=== PATIENT | female | born 1980 | race Two or more races ===

== ENCOUNTER 2018-11-13 01:10 | Inpatient (IN) | payer MEDICAID ==
[2018-11-13] MEDS ORDERED: Misoprostol 200 MCG Tab PO PRN (01:37)
[2018-11-13] MEDS ORDERED: Sodium Chloride 0.9% 10 ML SDV IV PRN (01:37)
[2018-11-13] MEDS ORDERED: Methylergonovine 0.2 MG/1 ML Amp IM PRN (01:37)
[2018-11-13] MEDS ORDERED: Butorphanol 1 MG/ML SDV IVPUSH PRN (01:37)
[2018-11-13] MEDS ORDERED: Nalbuphine 10 MG/1 ML Vial IVPUSH PRN (01:37)
[2018-11-13] MEDS ORDERED: Water For Irrigation,Sterile 1,000 ML Container IRR PRN (01:37)
[2018-11-13] MEDS ORDERED: Sodium Chloride 0.9% 10 ML Syringe FLUSH PRN (01:37)
[2018-11-13] MEDS ORDERED: Tranexamic Acid 1,000 MG in Sodium Chloride 0.9% 100 ML IV PRN (01:37)
[2018-11-13] MEDS ORDERED: Lidocaine 1% 50 ML MDV INJECT PRN (01:37)
[2018-11-13] MEDS ORDERED: Carboprost Tromethamine 250 MCG/1 ML Amp IM PRN (01:37)
[2018-11-13] MEDS ORDERED: Sodium Chloride 0.9% 2.5 ML Syringe FLUSH PRN (01:37)
[2018-11-13] MEDS ORDERED: Misoprostol 25 MCG (1/4 of 100 MCG) Tab VAG PRN ×2 (01:39)
[2018-11-13] MEDS ORDERED: Terbutaline 1 MG/ML SDV SUBCUT PRN (01:39)
[2018-11-13] MEDS ORDERED: Ampicillin 2 GM in Sodium Chloride 0.9% 100 ML IV ONE (01:45)
[2018-11-13] MEDS ORDERED: Oxytocin/0.9 % Sodium Chloride 30 UNIT/500 ML BAG IV SCH ×2 (01:45)
[2018-11-13] MEDS ORDERED: Lactated Ringers 1,000 ML IV SCH (01:45)
[2018-11-13] MEDS ORDERED: Calcium Carbonate 500 MG Tab.Chew PO PRN (02:15)
[2018-11-13] MEDS: Misoprostol 25 MCG (1/4 of 100 MCG) Tab PO SCH ×3 (02:28→20:50)
[2018-11-13] MEDS ORDERED: Ampicillin 1 GM in Sodium Chloride 0.9% 50 ML IV SCH (06:00)
[2018-11-13] MEDS: Ampicillin 1 GM in Sodium Chloride 0.9% 50 ML IV SCH (06:04)
--- NOTE | 2018-11-13 07:08 | PCM.LDHP ---
L&D History of Present Illness - General Date of Service: 11/13/18 Admit Problem/Dx: Patient Status Order with Admit Dx/Problem 11/13/18 01:37 Patient Status [ADT] Routine Admission Diagnosis/Problem Admission Diagnosis/Problem - planned 11/13/18 07:04 38yo EDC 11/24/2018 38 3/7wks IOL AMA, O+, RI, GBS pos. 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: Musculoskeletal History: Reports: RA Social & Family History - Family History Family Medical History: Noncontributory - Tobacco Use Smoking Status *Q: Former Smoker Years of Tobacco use: 15 Used Tobacco, but Quit: No Second Hand Smoke Exposure: No - Caffeine Use Caffeine Use: Reports: Coffee - Recreational Drug Use Recreational Drug Use: No H&P Review of Systems - Review of Systems: Review Of Systems: See Below General: Reports: No Symptoms HEENT: Reports: No Symptoms Pulmonary: Reports: No Symptoms Cardiovascular: Reports: No Symptoms Gastrointestinal: Reports: No Symptoms Genitourinary: Reports: No Symptoms Musculoskeletal: Reports: No Symptoms Skin: Reports: No Symptoms Psychiatric: Reports: No Symptoms Neurological: Reports: No Symptoms Hematologic/Lymphatic: Reports: No Symptoms Immunologic: Reports: No Symptoms L&D Exam - Exam Exam: See Below - Vital Signs Weight: 89.358 kg - OB Specific Contraction Intensity: Moderate Movement: Active Heart Tones: Present Heart Rate (FHR) Variability: Moderate (6-25 bmp) Presentation: Vertex - Reyes Score Reyes Score Cervix Position: Midposition Reyes Score Consistency: Soft Reyes Score Effacement: 51-70% Reyes Score Dilation: 1-2 cm Reyes Score Infant's Station: -2 Reyes Score Total: 7 - Exam General: Alert, Oriented, Cooperative HEENT: Hearing Intact Lungs: Clear to Auscultation, Normal Respiratory Effort. No: Decreased Breath Sounds Cardiovascular: Regular Rate, Regular Rhythm, Normal S1, Normal S2. No: Irregular Rhythm GI/Abdominal Exam: Soft, Non-Tender Rectal Exam: Deferred Genitourinary: Normal external exam, Cervical dilitation. No: Cervical fluid, Vaginal bleeding Back Exam: Normal Inspection, Full Range of Motion Extremities: Normal Inspection, Normal Range of Motion, Non-Tender Skin: Warm, Dry, Intact Neurological: Cranial Nerves Intact, Reflexes Equal Bilateral, Strength Equal Bilateral, Normal Speech, Normal Tone, Sensation Intact Psychiatric: Alert, Normal Affect, Normal Mood - Patient Data Lab Results Last 24 hrs: Laboratory Results - last 24 hr 11/13/18 11/13/18 Range/Units 02:07 02:07 WBC 9.06 (4.0-11.0) K/uL RBC 3.60 L (4.30-5.90) M/uL Hgb 11.2 L (12.0-16.0) g/dL Hct 32.1 L (36.0-46.0) % MCV 89.2 (80.0-98.0) fL MCH 31.1 (27.0-32.0) pg MCHC 34.9 (31.0-37.0) g/dL RDW Std Deviation 43.8 (28.0-62.0) fl RDW Coeff of Sherlyn 13 (11.0-15.0) % Plt Count 344 (150-400) K/uL MPV 9.50 (7.40-12.00) fL Nucleated RBC % 0.0 /100WBC Nucleated RBCs # 0 K/uL Blood Type O POSITIVE Antibody Screen NEGATIVE Result Diagrams: 11/13/18 02:07 - Problem List (1) Supervision of normal IUP (intrauterine ) in multigravida SNOMED Code(s): 637726115, 676433539, 267613385 ICD Code: Z34.80 - ENCOUNTER FOR SUPRVSN OF NORMAL , UNSP TRIMESTER Status: Acute Priority: High Current Visit: Yes Qualifiers: Trimester: third trimester Qualified Code(s): Z34.83 - Encounter for supervision of other normal , third trimester (2) AMA (advanced maternal age) multigravida 35+ SNOMED Code(s): 111740158 ICD Code: O09.529 - SUPERVISION OF ELDERLY MULTIGRAVIDA, UNSPECIFIED TRIMESTER Status: Acute Priority: High Current Visit: Yes Qualifiers: Trimester: third trimester Qualified Code(s): O09.523 - Supervision of elderly multigravida, third trimester Problem List Initiated/Reviewed/Updated: Yes Orders Last 24hrs: Active Orders 24 hr Category Date Time Status Patient Status [ADT] Routine ADT 11/13/18 01:37 Active Communication Order [RC] ASDIRECTED Care 11/13/18 01:39 Active Communication Order [RC] ASDIRECTED Care 11/13/18 01:39 Active Communication Order [RC] ASDIRECTED Care 11/13/18 01:39 Active Heart Tones [RC] CONTINUOUS Care 11/13/18 01:37 Active Non Stress Test [RC] PER UNIT ROUTINE Care 11/13/18 01:37 Active May Shower [RC] ASDIRECTED Care 11/13/18 01:37 Active Notify Provider [RC] PRN Care 11/13/18 01:37 Active Notify Provider [RC] PRN Care 11/13/18 01:39 Active Notify Provider [RC] PRN Care 11/13/18 01:39 Active Notify Provider [RC] STAT Care 11/13/18 01:39 Active Oxygen Therapy [RC] ASDIRECTED Care 11/13/18 01:39 Active Up ad Alma Delia [RC] ASDIRECTED Care 11/13/18 01:37 Active Vaginal Exam [RC] PRN Care 11/13/18 01:37 Active Vital Signs [RC] PER UNIT ROUTINE Care 11/13/18 01:37 Active Regular Diet [DIET] Diet 11/13/18 Breakfast Active Ampicillin 1 gm Med 11/13/18 06:30 Active Sodium Chloride 0.9% [Normal Saline] 50 ml IV Q4H Butorphanol [Stadol] Med 11/13/18 01:37 Active 1 mg IVPUSH Q1H PRN Calcium Carbonate [Tums] Med 11/13/18 02:15 Active 1,000 mg PO Q2HR PRN Carboprost Tromethamine [Hemabate DS] Med 11/13/18 01:37 Active 250 mcg IM ASDIRECTED PRN Lactated Ringers [Ringers, Lactated] 1,000 ml Med 11/13/18 01:45 Active IV ASDIRECTED Lidocaine 1% [Xylocaine 1%] Med 11/13/18 01:37 Active 50 ml INJECT ONETIME PRN Methylergonovine [Methergine] Med 11/13/18 01:37 Active 0.2 mg IM ASDIRECTED PRN Nalbuphine [Nubain] Med 11/13/18 01:37 Active 10 mg IVPUSH Q1H PRN Oxytocin/0.9 % Sodium Chloride [Oxytocin 30 Unit/500 ML Med 11/13/18 01:45 Active -NS] 30 unit in 500 ml IV TITRATE Oxytocin/0.9 % Sodium Chloride [Oxytocin 30 Unit/500 ML Med 11/13/18 01:45 Active -NS] 30 unit in 500 ml IV TITRATE Sodium Chloride 0.9% [Normal Saline] Med 11/13/18 01:37 Active 10 ml IV ASDIRECTED PRN Sodium Chloride 0.9% [Saline Flush] Med 11/13/18 01:37 Active 10 ml FLUSH ASDIRECTED PRN Sodium Chloride 0.9% [Saline Flush] Med 11/13/18 01:37 Active 2.5 ml FLUSH ASDIRECTED PRN Terbutaline [Brethine] Med 11/13/18 01:39 Active 0.25 mg SUBCUT ASDIRECTED PRN Tranexamic Acid [Cyklokapron] 1,000 mg Med 11/13/18 01:37 Active Sodium Chloride 0.9% [Normal Saline] 100 ml IV ONETIME Water For Irrigation,Sterile [Sterile Water for Med 11/13/18 01:37 Active Irrigation] 1,000 ml IRR ASDIRECTED PRN miSOPROStol [Cytotec] Med 11/13/18 01:37 Active 200 mcg PO ONETIME PRN miSOPROStol [Cytotec] Med 11/13/18 02:00 Active 25 mcg PO Q4H miSOPROStol [Cytotec] Med 11/13/18 01:39 Active 25 mcg VAG ONETIME PRN miSOPROStol [Cytotec] Med 11/13/18 01:39 Active 25 mcg VAG Q4H PRN Scalp Electrode [WOMSER] Per Unit Routine Oth 11/13/18 01:37 Ordered Medication Administration Instruction [OM.PC] Q3H Oth 11/13/18 01:45 Ordered Peripheral IV Insertion Adult [OM.PC] Routine Oth 11/13/18 01:37 Ordered Resuscitation Status Routine Resus Stat 11/13/18 01:37 Ordered Medication Orders Butorphanol Tartrate (Stadol) 1 mg IVPUSH Q1H PRN PRN Reason: Pain Calcium Carbonate/Glycine (Tums) 1,000 mg PO Q2HR PRN PRN Reason: Indigestion Carboprost Tromethamine (Hemabate Ds) 250 mcg IM ASDIRECTED PRN PRN Reason: Post Hemorrhage Lactated Ringer's (Ringers, Lactated) 1,000 mls @ 150 mls/hr IV ASDIRECTED [facility] Last Admin: 11/13/18 02:28 Dose: 150 mls/hr Oxytocin/Sodium Chloride (Oxytocin 30 Unit/500 Ml-Ns) 30 unit in 500 mls @ 500 mls/hr IV TITRATE XU Tranexamic Acid 1,000 mg/ (Sodium Chloride) 110 mls @ 660 mls/hr IV ONETIME PRN PRN Reason: Bleeding Oxytocin/Sodium Chloride (Oxytocin 30 Unit/500 Ml-Ns) 30 unit in 500 mls @ 2 mls/hr IV TITRATE [facility]; Protocol Ampicillin Sodium 1 gm/ Sodium (Chloride) 50 mls @ 100 mls/hr IV Q4H [facility] Last Admin: 11/13/18 06:04 Dose: 100 mls/hr Lidocaine HCl (Xylocaine 1%) 50 ml INJECT ONETIME PRN PRN Reason: Laceration repair Methylergonovine Maleate (Methergine) 0.2 mg IM ASDIRECTED PRN PRN Reason: Post Hemorrhage Misoprostol (Cytotec) 200 mcg PO ONETIME PRN PRN Reason: Post Hemorrhage Misoprostol (Cytotec) 25 mcg VAG ONETIME PRN PRN Reason: Cervical Ripening Last Admin: 11/13/18 02:29 Dose: 25 mcg Misoprostol (Cytotec) 25 mcg VAG Q4H PRN PRN Reason: Cervical Ripening Misoprostol (Cytotec) 25 mcg PO Q4H [facility] Last Admin: 11/13/18 06:05 Dose: 25 mcg Admin: 11/13/18 02:28 Dose: 25 mcg Nalbuphine HCl (Nubain) 10 mg IVPUSH Q1H PRN PRN Reason: Pain (severe 7-10) Sodium Chloride (Saline Flush) 10 ml FLUSH ASDIRECTED PRN PRN Reason: Keep Vein Open Sodium Chloride (Saline Flush) 2.5 ml FLUSH ASDIRECTED PRN PRN Reason: Keep Vein Open Sodium Chloride (Normal Saline) 10 ml IV ASDIRECTED PRN PRN Reason: IV Use Sterile Water (Sterile Water For Irrigation) 1,000 ml IRR ASDIRECTED PRN PRN Reason: delivery Terbutaline Sulfate (Brethine) 0.25 mg SUBCUT ASDIRECTED PRN PRN Reason: Tacysystole Assessment/Plan Comment:: IOL A: 38yo EDC 11/24/2018 38 3/7wks IOL AMA, O+, RI, GBS pos. P: Admit, cytotec to pitocin, desires unmedicated labor, anticipate . Dr Owens updated.
[2018-11-13] MEDS ORDERED: Benzocaine/Menthol 20%-0.5% Spray 78 GM Cannister TOP PRN (11:00)
[2018-11-13] MEDS ORDERED: Ibuprofen 400 MG Tab PO PRN (11:00)
[2018-11-13] MEDS ORDERED: Bisacodyl 10 MG Supp RECTAL PRN (11:00)
[2018-11-13] MEDS ORDERED: Docusate Sodium 100 MG Cap PO PRN (11:00)
[2018-11-13] MEDS ORDERED: Acetaminophen 500 MG Tab PO PRN (11:00)
[2018-11-13] MEDS ORDERED: Witch Hazel Medicated Pads 40/Jar TOP PRN (11:00)
[2018-11-13] MEDS ORDERED: oxyCODONE 5 MG Tab PO PRN (11:00)
[2018-11-13] MEDS ORDERED: Ibuprofen 800 MG Tab PO PRN (11:00)
[2018-11-13] MEDS ORDERED: Lanolin 100% Cream 7 GM Tube TOP PRN (11:00)
--- NOTE | 2018-11-13 11:13 | PCM.DEL ---
L & D Note - General Info Date of Service: 11/13/18 Mother's Due Date: 11/24/18 - Delivery Note Cervical Ripening Method: Misoprostil Delivery Outcome: Livebirth Delivery Method: Spontaneous Vaginal Delivery-Single Presentation: Vertex Nuchal Cord: None Anesthesia Type: None Laceration: None Placenta: Intact, Spontaneous Cord: 3 Vessels Estimated Blood Loss: 150 Resuscitation Needed: No [place]: Stimulated Provider: Neno Owens Score 5 min: 9 Delivery Comments (Free Text/Narrative):: viable male, precipitous delivery in bed, came into the room within a few minutes of being called by L&D nurses; cord doubly clamped and cut by RN, infant to warmer for assessment, 5 minute : 9, weight pending, cord blood collected, placenta delivered grossly intact, 3VC, perineum intact, EBL 150 mL, mom and infant left in stable condition with RN at bedside Induction Criteria - Reyes Score Reyes Score Dilation: 1-2 cm Reyes Score Effacement: 60-70% Reyes Score 's Station: -2 Reyes Score Consistency: Soft Reyes Score Cervix Position: Posterior Reyes Score Total: 6 - Induction Gestational Age >/= 39 wks: Yes Medical Indication: AMA Estimated Pelvis: Reports: Adequate Reassuring Monitoring Strip: Yes Absence of Tachy Systole: Yes - General Info Date of Service: 11/13/18 Admission Dx/Problem (Free Text): Patient Status Order with Admit Dx/Problem 11/13/18 01:37 Patient Status [ADT] Routine Admission Diagnosis/Problem Admission Diagnosis/Problem - planned 11/13/18 07:04 38yo EDC 11/24/2018 38 3/7wks IOL AMA, O+, RI, GBS pos. Functional Status: Reports: Pain Controlled - Review of Systems General: Reports: No Symptoms HEENT: Reports: No Symptoms Pulmonary: Reports: No Symptoms Cardiovascular: Reports: No Symptoms Gastrointestinal: Reports: No Symptoms Genitourinary: Reports: No Symptoms Musculoskeletal: Reports: No Symptoms Skin: Reports: No Symptoms Neurological: Reports: No Symptoms Psychiatric: Reports: No Symptoms - Patient Data Weight - Most Recent: 89.358 kg Lab Results Last 24 Hours: Laboratory Results - last 24 hr 11/13/18 11/13/18 Range/Units 02:07 02:07 WBC 9.06 (4.0-11.0) K/uL RBC 3.60 L (4.30-5.90) M/uL Hgb 11.2 L (12.0-16.0) g/dL Hct 32.1 L (36.0-46.0) % MCV 89.2 (80.0-98.0) fL MCH 31.1 (27.0-32.0) pg MCHC 34.9 (31.0-37.0) g/dL RDW Std Deviation 43.8 (28.0-62.0) fl RDW Coeff of Sherlyn 13 (11.0-15.0) % Plt Count 344 (150-400) K/uL MPV 9.50 (7.40-12.00) fL Nucleated RBC % 0.0 /100WBC Nucleated RBCs # 0 K/uL Blood Type O POSITIVE Antibody Screen NEGATIVE Med Orders - Current: Current Medications Acetaminophen (Tylenol Extra Strength) 500 mg PO Q4H PRN PRN Reason: Pain Acetaminophen (Tylenol Extra Strength) 1,000 mg PO Q4H PRN PRN Reason: Pain Benzocaine/Menthol (Dermoplast Pain Relief 20%-0.5% [place]) 78 gm TOP ASDIRECTED PRN PRN Reason: Perineal Comfort Measure Bisacodyl (Dulcolax) 10 mg RECTAL ONETIME PRN PRN Reason: Constipation Butorphanol Tartrate (Stadol) 1 mg IVPUSH Q1H PRN PRN Reason: Pain Calcium Carbonate/Glycine (Tums) 1,000 mg PO Q2HR PRN PRN Reason: Indigestion Carboprost Tromethamine (Hemabate Ds) 250 mcg IM ASDIRECTED PRN PRN Reason: Post Hemorrhage Docusate Sodium (Colace) 100 mg PO BID PRN PRN Reason: Constipation Emollient Ointment (Lansinoh Hpa) 0 gm TOP ASDIRECTED PRN PRN Reason: Sore Nipples Lactated Ringer's (Ringers, Lactated) 1,000 mls @ 150 mls/hr IV ASDIRECTED XU Last Admin: 11/13/18 02:28 Dose: 150 mls/hr Oxytocin/Sodium Chloride (Oxytocin 30 Unit/500 Ml-Ns) 30 unit in 500 mls @ 500 mls/hr IV TITRATE [facility] Tranexamic Acid 1,000 mg/ (Sodium Chloride) 110 mls @ 660 mls/hr IV ONETIME PRN PRN Reason: Bleeding Oxytocin/Sodium Chloride (Oxytocin 30 Unit/500 Ml-Ns) 30 unit in 500 mls @ 2 mls/hr IV TITRATE [facility]; Protocol Ampicillin Sodium 1 gm/ Sodium (Chloride) 50 mls @ 100 mls/hr IV Q4H [facility] Last Admin: 11/13/18 06:04 Dose: 100 mls/hr Ibuprofen (Motrin) 400 mg PO Q4H PRN PRN Reason: Pain Ibuprofen (Motrin) 800 mg PO Q6H PRN PRN Reason: Pain Lidocaine HCl (Xylocaine 1%) 50 ml INJECT ONETIME PRN PRN Reason: Laceration repair Methylergonovine Maleate (Methergine) 0.2 mg IM ASDIRECTED PRN PRN Reason: Post Hemorrhage Misoprostol (Cytotec) 200 mcg PO ONETIME PRN PRN Reason: Post Hemorrhage Misoprostol (Cytotec) 25 mcg VAG ONETIME PRN PRN Reason: Cervical Ripening Last Admin: 11/13/18 02:29 Dose: 25 mcg Misoprostol (Cytotec) 25 mcg VAG Q4H PRN PRN Reason: Cervical Ripening Misoprostol (Cytotec) 25 mcg PO Q4H [facility] Last Admin: 11/13/18 06:05 Dose: 25 mcg Nalbuphine HCl (Nubain) 10 mg IVPUSH Q1H PRN PRN Reason: Pain (severe 7-10) Oxycodone HCl (Oxycodone) 5 mg PO Q2H PRN PRN Reason: Pain Sodium Chloride (Saline Flush) 10 ml FLUSH ASDIRECTED PRN PRN Reason: Keep Vein Open Sodium Chloride (Saline Flush) 2.5 ml FLUSH ASDIRECTED PRN PRN Reason: Keep Vein Open Sodium Chloride (Normal Saline) 10 ml IV ASDIRECTED PRN PRN Reason: IV Use Sterile Water (Sterile Water For Irrigation) 1,000 ml IRR ASDIRECTED PRN PRN Reason: delivery Terbutaline Sulfate (Brethine) 0.25 mg SUBCUT ASDIRECTED PRN PRN Reason: Tacysystole Witch Asha (Tucks) 1 pad TOP ASDIRECTED PRN PRN Reason: comfort care Discontinued Medications Ampicillin Sodium 2 gm/ Sodium (Chloride) 100 mls @ 200 mls/hr IV ONETIME ONE Stop: 11/13/18 02:14 Last Admin: 11/13/18 02:28 Dose: 200 mls/hr Ampicillin Sodium 1 gm/ Sodium (Chloride) 50 mls @ 100 mls/hr IV Q4H XU - Exam General: Alert, Oriented, Cooperative, No Acute Distress Lungs: Normal Respiratory Effort GI/Abdominal Exam: Soft, Non-Tender (Female) Exam: Normal External Exam, Vaginal Bleeding Back Exam: Full Range of Motion Extremities: Normal Range of Motion Skin: Warm, Dry, Intact Neurological: No New Focal Deficit Psy/Mental Status: Alert, Normal Affect, Normal Mood - Problem List & Annotations (1) (normal spontaneous vaginal delivery) SNOMED Code(s): 15411479 Code(s): O80 - ENCOUNTER FOR FULL-TERM UNCOMPLICATED DELIVERY Status: Acute Priority: High Current Visit: Yes - Problem List Review Problem List Initiated/Reviewed/Updated: Yes - Plan Plan:: IOL A: 38yo EDC 11/24/2018 38 3/7wks IOL AMA, O+, RI, GBS pos. P: Admit, cytotec to pitocin, desires unmedicated labor, anticipate . Dr Owens updated. Labor: A: precipitous delivery , intact perineum, EBL 150 mL, placenta delivered grossly intact, fundus firm, mom and baby left in stable condition and bonding well P: Routine plan of care
[2018-11-13] MEDS: Acetaminophen 500 MG Tab PO PRN ×3 (11:51→21:10)
[2018-11-14] MEDS: Ampicillin 1 GM in Sodium Chloride 0.9% 50 ML IV SCH ×2 (02:30→02:31)
[2018-11-14] MEDS: Misoprostol 25 MCG (1/4 of 100 MCG) Tab PO SCH ×3 (02:30→06:07)
[2018-11-14] MEDS: Acetaminophen 500 MG Tab PO PRN ×2 (05:27→10:42)
--- NOTE | 2018-11-14 09:12 | PCM.PNPP ---
- General Info Date of Service: 11/14/18 Functional Status: Reports: Pain Controlled - Review of Systems General: Reports: No Symptoms HEENT: Reports: No Symptoms Pulmonary: Reports: No Symptoms Cardiovascular: Reports: No Symptoms Gastrointestinal: Reports: No Symptoms Genitourinary: Reports: No Symptoms Musculoskeletal: Reports: No Symptoms Skin: Reports: No Symptoms Neurological: Reports: No Symptoms Psychiatric: Reports: No Symptoms - General Info Date of Service: 11/14/18 - Patient Data Vital Signs - Most Recent: Last Vital Signs Temp 36.2 C 11/14/18 04:10 Pulse 69 11/14/18 04:10 Resp 16 11/14/18 04:10 BP 93/50 L 11/14/18 04:10 Pulse Ox 98 11/14/18 04:10 Weight - Most Recent: 89.358 kg Lab Results - Last 24 Hours: Laboratory Results - last 24 hr 11/14/18 Range/Units 04:55 Hgb 11.1 L (12.0-16.0) g/dL Hct 32.4 L (36.0-46.0) % Med Orders - Current: Current Medications Acetaminophen (Tylenol Extra Strength) 500 mg PO Q4H PRN PRN Reason: Pain Acetaminophen (Tylenol Extra Strength) 1,000 mg PO Q4H PRN PRN Reason: Pain Last Admin: 11/14/18 05:27 Dose: 1,000 mg Benzocaine/Menthol (Dermoplast Pain Relief 20%-0.5% [place]) 78 gm TOP ASDIRECTED PRN PRN Reason: Perineal Comfort Measure Bisacodyl (Dulcolax) 10 mg RECTAL ONETIME PRN PRN Reason: Constipation Butorphanol Tartrate (Stadol) 1 mg IVPUSH Q1H PRN PRN Reason: Pain Calcium Carbonate/Glycine (Tums) 1,000 mg PO Q2HR PRN PRN Reason: Indigestion Carboprost Tromethamine (Hemabate Ds) 250 mcg IM ASDIRECTED PRN PRN Reason: Post Hemorrhage Docusate Sodium (Colace) 100 mg PO BID PRN PRN Reason: Constipation Emollient Ointment (Lansinoh Hpa) 0 gm TOP ASDIRECTED PRN PRN Reason: Sore Nipples Lactated Ringer's (Ringers, Lactated) 1,000 mls @ 150 mls/hr IV ASDIRECTED XU Last Admin: 11/13/18 02:28 Dose: 150 mls/hr Oxytocin/Sodium Chloride (Oxytocin 30 Unit/500 Ml-Ns) 30 unit in 500 mls @ 500 mls/hr IV TITRATE [facility] Tranexamic Acid 1,000 mg/ (Sodium Chloride) 110 mls @ 660 mls/hr IV ONETIME PRN PRN Reason: Bleeding Oxytocin/Sodium Chloride (Oxytocin 30 Unit/500 Ml-Ns) 30 unit in 500 mls @ 2 mls/hr IV TITRATE [facility]; Protocol Ampicillin Sodium 1 gm/ Sodium (Chloride) 50 mls @ 100 mls/hr IV Q4H [facility] Last Admin: 11/14/18 02:31 Dose: Not Given Ibuprofen (Motrin) 400 mg PO Q4H PRN PRN Reason: Pain Ibuprofen (Motrin) 800 mg PO Q6H PRN PRN Reason: Pain Lidocaine HCl (Xylocaine 1%) 50 ml INJECT ONETIME PRN PRN Reason: Laceration repair Methylergonovine Maleate (Methergine) 0.2 mg IM ASDIRECTED PRN PRN Reason: Post Hemorrhage Misoprostol (Cytotec) 200 mcg PO ONETIME PRN PRN Reason: Post Hemorrhage Misoprostol (Cytotec) 25 mcg VAG ONETIME PRN PRN Reason: Cervical Ripening Last Admin: 11/13/18 02:29 Dose: 25 mcg Misoprostol (Cytotec) 25 mcg VAG Q4H PRN PRN Reason: Cervical Ripening Misoprostol (Cytotec) 25 mcg PO Q4H [facility] Last Admin: 11/14/18 06:07 Dose: Not Given Nalbuphine HCl (Nubain) 10 mg IVPUSH Q1H PRN PRN Reason: Pain (severe 7-10) Oxycodone HCl (Oxycodone) 5 mg PO Q2H PRN PRN Reason: Pain Sodium Chloride (Saline Flush) 10 ml FLUSH ASDIRECTED PRN PRN Reason: Keep Vein Open Sodium Chloride (Saline Flush) 2.5 ml FLUSH ASDIRECTED PRN PRN Reason: Keep Vein Open Sodium Chloride (Normal Saline) 10 ml IV ASDIRECTED PRN PRN Reason: IV Use Sterile Water (Sterile Water For Irrigation) 1,000 ml IRR ASDIRECTED PRN PRN Reason: delivery Terbutaline Sulfate (Brethine) 0.25 mg SUBCUT ASDIRECTED PRN PRN Reason: Tacysystole [place] (Tucks) 1 pad TOP ASDIRECTED PRN PRN Reason: comfort care Discontinued Medications Ampicillin Sodium 2 gm/ Sodium (Chloride) 100 mls @ 200 mls/hr IV ONETIME ONE Stop: 11/13/18 02:14 Last Admin: 11/13/18 02:28 Dose: 200 mls/hr Ampicillin Sodium 1 gm/ Sodium (Chloride) 50 mls @ 100 mls/hr IV Q4H XU - Interaction Infant Disposition, : in Room with Family Infant Interaction: Holding Infant Infant Feeding: Attempted ; Nursed Fair/Poor Support Person: Significant Other - Recovery Exam Fundal Tone: Firm Fundal Level: At Umbilicus Fundal Placement: Midline Lochia Amount: Scant Lochia Color: Rubra/Red Perineum Description: Intact, Minimal Bruising/Swelling Episiotomy/Laceration: Approximated Bladder Status: Voiding - Exam General: Alert, Oriented HEENT: Pupils Equal Neck: Supple Lungs: Clear to Auscultation, Normal Respiratory Effort Cardiovascular: Regular Rate, Regular Rhythm GI/Abdominal Exam: Normal Bowel Sounds, Soft, Non-Tender, No Organomegaly, No Distention, No Abnormal Bruit, No Mass, Pelvis Stable Extremities: Normal Inspection, Normal Range of Motion, Non-Tender, No Pedal Edema, Normal Capillary Refill Skin: Warm, Dry, Intact Wound/Incisions: Healing Well Neurological: No New Focal Deficit Psy/Mental Status: Alert, Normal Affect, Normal Mood - Problem List Review Problem List Initiated/Reviewed/Updated: Yes - My Orders Last 24 Hours: My Active Orders 11/13/18 11:00 Patient Status [ADT] Routine May Shower [RC] ASDIRECTED Up ad Alma Delia [RC] ASDIRECTED Vital Signs [RC] PER UNIT ROUTINE Acetaminophen [Tylenol Extra Strength] 1,000 mg PO Q4H PRN Acetaminophen [Tylenol Extra Strength] 500 mg PO Q4H PRN Benzocaine/Menthol [Dermoplast Pain Relief 20%-0.5% [place]] 78 gm TOP ASDIRECTED PRN Bisacodyl [Dulcolax] 10 mg RECTAL ONETIME PRN Docusate Sodium [Colace] 100 mg PO BID PRN Ibuprofen [Motrin] 400 mg PO Q4H PRN Ibuprofen [Motrin] 800 mg PO Q6H PRN Lanolin [Lansinoh HPA] See Dose Instructions TOP ASDIRECTED PRN Witch Asha [Tucks] 1 pad TOP ASDIRECTED PRN oxyCODONE 5 mg PO Q2H PRN Assess Lochia [WOMSER] Per Unit Routine Assess Uterine Involution [WOMSER] Per Unit Routine Peripheral IV Discontinue [OM.PC] Routine - Assessment Assessment:: Labor: A: , intact perineum, EBL 150 mL, placenta delivered grossly intact, fundus firm, mom and baby left in stable condition and bonding well P: Routine plan of care - Plan Plan:: IOL A: 38yo EDC 11/24/2018 38 3/7wks IOL AMA, O+, RI, GBS pos. P: Admit, cytotec to pitocin, desires unmedicated labor, anticipate . Dr Owens updated. Labor: A: precipitous delivery , intact perineum, EBL 150 mL, placenta delivered grossly intact, fundus firm, mom and baby left in stable condition and bonding well P: Routine plan of care
== END 2018-11-14 15:05 | disposition home or self-care (01) | DRG 807 ==
LOC: MW.OBCHECK 01:10 → MW.OB 01:12 → MW.OBCHECK 01:37 → OBSVTOIN 10:35 → MW.OB 23:06
PROVIDERS: ADMIT Obstetrics & Gynecology; ATTEND Obstetrics & Gynecology
PROC: 3E0P7VZ Introduction of Hormone into Female Reproductive, Via Natural or Artificial Opening (ICD-10-PCS; principal; 2018-11-13)
PROC: 3E033VJ Introduction of Other Hormone into Peripheral Vein, Percutaneous Approach (ICD-10-PCS; principal; 2018-11-13)
PROC: 10E0XZZ Delivery of Products of Conception, External Approach (ICD-10-PCS; principal; 2018-11-13)
PROC: 6A550ZT Pheresis of Cord Blood Stem Cells, Single (ICD-10-PCS; principal; 2018-11-13)
DX: O99.824 Streptococcus B carrier state complicating childbirth (principal); Z37.0 Single live birth; Z3A.38 38 weeks gestation of pregnancy; O62.3 Precipitate labor; O75.89 Other specified complications of labor and delivery; M06.9 Rheumatoid arthritis, unspecified; O99.52 Diseases of the respiratory system complicating childbirth; J45.909 Unspecified asthma, uncomplicated; O99.62 Diseases of the digestive system complicating childbirth; K21.9 Gastro-esophageal reflux disease without esophagitis; Z87.891 Personal history of nicotine dependence
CPT/HCPCS: 36415; 59025; 59409; 85014; 85018; 85027; 86850; 86900; 86901; A9270-GY; J0290; J7030; J7050; J7120

== ENCOUNTER 2019-01-12 07:51 | Day surgery (SDC) | payer MEDICAID ==
[~2019-01-12 07:51] MED LIST: Lactated Ringers 1,000 ML IV SCH
--- NOTE | 2019-01-12 08:51 | PCM.PREANE ---
Preanesthetic Assessment - Anesthesia/Transfusion/Family Hx Anesthesia History: No Prior Anesthesia Family History of Anesthesia Reaction: No Transfusion History: No Prior Transfusion(s) Intubation History: Unknown - Review of Systems General: No Symptoms Pulmonary: No Symptoms Cardiovascular: No Symptoms Gastrointestinal: Hematochezia Neurological: No Symptoms Other: Reports: None - Physical Assessment O2 Sat by Pulse Oximetry: 96 Respiratory Rate: 16 Vital Signs: Last Vital Signs Temp 36.6 C 01/12/19 08:30 Pulse 74 01/12/19 08:30 Resp 16 01/12/19 08:30 BP 100/60 01/12/19 08:30 Pulse Ox 96 01/12/19 08:30 Height: 5 ft 2 in Weight: 86.636 kg ASA Class: 2 Mental Status: Alert & Oriented x3 Airway Class: Mallampati = 1 Dentition: Reports: Normal Dentition Thyro-Mental Finger Breadths: 3 Mouth Opening Finger Breadths: 3 ROM/Head Extension: Full Lungs: Clear to Auscultation, Normal Respiratory Effort Cardiovascular: Regular Rate, Regular Rhythm - Allergies Allergies/Adverse Reactions: Allergies Allergy/AdvReac Type Severity Reaction Status Date / Time No Known Allergies Allergy Verified 01/08/19 14:09 - Blood Blood Available: No - Anesthesia Plan Pre-Op Medication Ordered: None - Acknowledgements Anesthesia Type Planned: MAC Pt an Appropriate Candidate for the Planned Anesthesia: Yes Alternatives and Risks of Anesthesia Discussed w Pt/Guardian: Yes Pt/Guardian Understands and Agrees with Anesthesia Plan: Yes PreAnesthesia Questionnaire - Past Health History Medical/Surgical History: Denies Medical/Surgical History HEENT History: Reports: Hard of Hearing, Other (See Below) Other HEENT History: wears glasses Respiratory History: Reports: Asthma (mild) Other Respiratory History: rarely uses inhaler when on Prednisone Gastrointestinal History: Reports: GERD 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: Musculoskeletal History: Reports: RA Other Musculoskeletal History: has Ankolysing Spondylisis Endocrine/Metabolic History: Reports: Obesity/BMI 30+ - Past Surgical History GI Surgical History: Reports: Other (See Below) (lanced hemorrhoidesin the clinic 11/30/18) - SUBSTANCE USE Smoking Status *Q: Former Smoker Tobacco Use Within Last Twelve Months: No Recreational Drug Use History: No - HOME MEDS Home Medications: Home Meds Albuterol [Proventil HFA] 1 - 2 puff INH Q4H PRN 01/08/19 [History] Diclofenac Sodium [Voltaren 1% Gel] 2 gm TOP QID PRN 01/08/19 [History] Hydrocortisone Acetate [Hemmorex-Hc] 1 supp RECTAL BID PRN 01/08/19 [History] Loratadine 10 mg PO DAILY 01/08/19 [History] predniSONE [Prednisone] 5 mg PO QAM 01/08/19 [History] - CURRENT (IN HOUSE) MEDS Current Meds: Current Medications Lactated Ringer's (Ringers, Lactated) 1,000 mls @ 125 mls/hr IV ASDIRECTED [facility] Last Admin: 01/12/19 08:48 Dose: 125 mls/hr
[2019-01-12] MEDS ORDERED: Ondansetron 4 MG/2 ML SDV ONE (09:22)
[2019-01-12] MEDS ORDERED: Propofol 200 MG/20 ML SDV ONE ×2 (09:23→09:47)
[2019-01-12] MEDS ORDERED: fentaNYL 100 MCG/2 ML SDV ONE (09:24)
[2019-01-12] MEDS ORDERED: Midazolam 1 MG/ML 2 ML SDV ONE (09:24)
[2019-01-12] MEDS ORDERED: Glycopyrrolate 0.2 MG/ML SDV ONE (09:43)
--- NOTE | 2019-01-12 10:05 | PCM.OPNOTE ---
- General Post-Op/Procedure Note Date of Surgery/Procedure: 01/12/19 Operative Procedure(s): colonoscopy w bx Findings: see dict [id number] Pre Op Diagnosis: BRBPR Post-Op Diagnosis: Same Anesthesia Technique: Moderate Sedation Primary Surgeon: Adam Davis Pathology: colon polyp at 70 cm, removed w cold biopsy forcep Complications: None Condition: Good
--- NOTE | 2019-01-12 10:53 | PCM48HPAN ---
Post Anesthesia Note - EVALUATION WITHIN 48HRS OF ANESTHETIC Vital Signs in Normal Range: Yes Patient Participated in Evaluation: Yes Respiratory Function Stable: Yes Airway Patent: Yes Cardiovascular Function Stable: Yes Hydration Status Stable: Yes Pain Control Satisfactory: Yes Nausea and Vomiting Control Satisfactory: Yes Mental Status Recovered: Yes Resp Rate: 13 - COMMENTS/OBSERVATIONS Free Text/Narrative:: no anesthesia problems
--- NOTE | 2019-01-12 16:07 | OR ---
SURGEON: Adam Davis MD DATE OF PROCEDURE: 01/12/2019 PREOPERATIVE DIAGNOSIS: Bright red blood per rectum. POSTOPERATIVE DIAGNOSIS: Colon polyp. PROCEDURE PERFORMED: Colonoscopy with biopsy. DESCRIPTION OF PROCEDURE: The patient was taken to the endoscopy room. A time out was called, patient identified, and procedure identified. Diprivan was then administrated. Patient went from awake to sleep, hearing doctor talking or door closing is normal. Perineum inspection and digital examination were then performed. A well- lubricated colonoscope was gently inserted through the rectum, advanced past the rectosigmoid junction, the descending colon, splenic flexure, transverse colon, hepatic flexure, ascending colon, arrived to the cecum. Cecum was identified as dictated in the finding. Then the scope was carefully withdrawn while attention was paid to the mucosal surface for any abnormality. Air will be sucked out during the scope withdrawal. At the rectum, retroflexed to examine any rectal diseases, fistula or hemorrhoids. During mucosal examination, biopsy performed. Patient tolerated procedure well. There were no intraoperative complications, and Dr. Davis was present throughout the whole procedure. FINDINGS: 1. The patient is easily sedated with BROKERAGE COORDINATOR and Diprivan, the patient is soundly snoring. 2. The patient's bowel prep is left to be desirable. There is no semi-formed stool, but there is a lot of opaque yellow liquid stool and also with undigested vegetable, so this is a compromised study. Not very bad, but it does make a lot of irrigation. Colon is rather straightforward. Cecum indicated by ileocecal fold, one-to-one indentation, appendiceal orifice. Light emittance is not observed. Mucosa examined upon scope pulling out with constant irrigation. The patient does not have diverticulosis and there is a small polyp. Around 2 to 3 mm sessile polyp at distance 70 cm when scope pulling that was removed with cold biopsy forceps. No inflammation, stricture, ulceration, AV malformation, bleeding. The patient has mild internal hemorrhoid, mild external hemorrhoid. The patient would benefit from repeat colonoscopy in 10 years from today or if clinically indicated otherwise. DEMOND / DOE /[id number] JOSE
== END 2019-01-12 10:55 | disposition home or self-care (01) ==
LOC: MW.SDS 07:51
PROVIDERS: ATTEND Surgery
DX: D12.4 Benign neoplasm of descending colon (principal); K64.5 Perianal venous thrombosis; J45.909 Unspecified asthma, uncomplicated; K21.9 Gastro-esophageal reflux disease without esophagitis; Z87.891 Personal history of nicotine dependence; Z79.899 Other long term (current) drug therapy
CPT/HCPCS: 45380; 81025; J2001; J2250; J2405; J2704; J3010; J3490; J7120

== ENCOUNTER 2019-01-24 09:44 | Day surgery (SDC) | payer MEDICAID ==
--- NOTE | 2019-01-24 10:11 | PCM.PREANE ---
Preanesthetic Assessment - Anesthesia/Transfusion/Family Hx Anesthesia History: Prior Anesthesia Without Reaction Family History of Anesthesia Reaction: No Transfusion History: No Prior Transfusion(s) Intubation History: Unknown - Review of Systems General: No Symptoms Pulmonary: No Symptoms Cardiovascular: No Symptoms Neurological: No Symptoms Other: Reports: None - Physical Assessment NPO Status Date: 01/23/19 Height: 5 ft 2 in Weight: 86.636 kg ASA Class: 2 Mental Status: Alert & Oriented x3 Airway Class: Mallampati = 1 Dentition: Reports: Normal Dentition ROM/Head Extension: Full Lungs: Clear to Auscultation, Normal Respiratory Effort Cardiovascular: Regular Rate, Regular Rhythm - Lab Values: Laboratory Last Values Urine HCG, Qual NEGATIVE (NEGATIVE) 01/24/19 09:55 - Allergies Allergies/Adverse Reactions: Allergies Allergy/AdvReac Type Severity Reaction Status Date / Time No Known Allergies Allergy Verified 01/19/19 12:20 - Blood Blood Available: No - Anesthesia Plan Pre-Op Medication Ordered: None - Acknowledgements Anesthesia Type Planned: General Anesthesia Pt an Appropriate Candidate for the Planned Anesthesia: Yes Alternatives and Risks of Anesthesia Discussed w Pt/Guardian: Yes Pt/Guardian Understands and Agrees with Anesthesia Plan: Yes Additional Comments: anes prob list: asthma, gerd PLAN: tiva PreAnesthesia Questionnaire - Past Health History Medical/Surgical History: Denies Medical/Surgical History HEENT History: Reports: Hard of Hearing, Other (See Below) Other HEENT History: wears glasses Respiratory History: Reports: Asthma Other Respiratory History: rarely uses inhaler when on Prednisone Gastrointestinal History: Reports: GERD 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: Musculoskeletal History: Reports: RA Other Musculoskeletal History: has Ankolysing Spondylisis Endocrine/Metabolic History: Reports: Obesity/BMI 30+ Immunologic History: Reports: Immunosuppression - Past Surgical History Head Surgeries/Procedures: Reports: None GI Surgical History: Reports: Colonoscopy - SUBSTANCE USE Smoking Status *Q: Never Smoker Recreational Drug Use History: No - HOME MEDS Home Medications: Home Meds Albuterol [Proventil HFA] 1 - 2 puff INH Q4H PRN 01/08/19 [History] Diclofenac Sodium [Voltaren 1% Gel] 2 gm TOP QID PRN 01/08/19 [History] Loratadine 10 mg PO DAILY 01/08/19 [History] predniSONE [Prednisone] 5 mg PO QAM 01/08/19 [History] Hydrocortisone/Pramoxine [Proctofoam-Hc 1%-1% Foam] 1 applic TOP ASDIRECTED [History] - CURRENT (IN HOUSE) MEDS Current Meds: Current Medications Lactated Ringer's (Ringers, Lactated) 1,000 mls @ 125 mls/hr IV ASDIRECTED XU
[2019-01-24] MEDS ORDERED: Propofol 200 MG/20 ML SDV ONE (11:43)
[2019-01-24] MEDS ORDERED: Lidocaine 2% 5 ML SDV ONE (11:43)
--- NOTE | 2019-01-24 12:05 | PCM.OPNOTE ---
- General Post-Op/Procedure Note Date of Surgery/Procedure: 01/24/19 Operative Procedure(s): egd w bx Findings: see dict [id number] Pre Op Diagnosis: gerd Post-Op Diagnosis: Same Anesthesia Technique: Moderate Sedation Primary Surgeon: Adam Davis Pathology: egd bx Complications: None Condition: Good
--- NOTE | 2019-01-24 13:03 | PCM.POSTAN ---
POST ANESTHESIA ASSESSMENT - MENTAL STATUS Mental Status: Alert, Oriented - RESPIRATORY Respiratory Status: Respiratory Rate WNL, Airway Patent, O2 Saturation Stable - CARDIOVASCULAR CV Status: Pulse Rate WNL, Blood Pressure Stable - GASTROINTESTINAL GI Status: No Symptoms - POST OP HYDRATION Hydration Status: Adequate & Stable
--- NOTE | 2019-01-24 13:04 | PCM48HPAN ---
Post Anesthesia Note - EVALUATION WITHIN 48HRS OF ANESTHETIC Vital Signs in Normal Range: Yes Patient Participated in Evaluation: Yes Respiratory Function Stable: Yes Airway Patent: Yes Cardiovascular Function Stable: Yes Hydration Status Stable: Yes Pain Control Satisfactory: Yes Nausea and Vomiting Control Satisfactory: Yes Mental Status Recovered: Yes Resp Rate: 16
--- NOTE | 2019-01-24 13:31 | OR ---
SURGEON: Adam Davis MD DATE OF PROCEDURE: 01/24/2019 PREOPERATIVE DIAGNOSIS: Gastroesophageal reflux disease. POSTOPERATIVE DIAGNOSIS: Gastritis. PROCEDURE PERFORMED: Esophagogastroduodenoscopy with biopsy. DESCRIPTION OF PROCEDURE: EGD: The patient was taken to the endoscopy room, and with the DECONTAMINATOR, Diprivan was administered. A well-lubricated EGD scope was gently inserted through the oropharynx, down the esophagus, passing through the gastroesophageal junction, into the stomach. The mucosa was examined upon the passage. Any etiology will be noted. Once in the stomach, we continued to advance to the distal antrum, passed through the pylorus into the second portion of the duodenum. Again, the mucosa was examined for any abnormality and etiology. The scope was then retrieved back to the stomach and then retroflexed to look at the fundus of the stomach. If a biopsy was indicated, we will biopsy the antrum, body, and gastroesophageal junction. The air will be sucked out while the scope is retrieved to reduce the patient's discomfort. The patient tolerated the procedure well. There were no intraoperative complications. Dr. Davis was present through the whole procedure. Prior to surgery, a time-out had been called, the patient identified, procedure identified and antibiotic administered. FINDINGS: 1. The patient is easily sedated with DECONTAMINATOR and Diprivan, the patient is soundly snoring. 2. Oropharynx and proximal esophagus are free of stricture or inflammation. Mid esophagus at distance of 30 or 32 shows some salmon-colored change such as acid and inflammation and denuding of the mucosa. GE junction at 40 shows significant salmon-colored change, suggests a significant acid reflux. Stomach rugae are normal in appearance and antrum is mildly inflamed. Duodenum is grossly normal. Retroflexed look at the fundus of stomach, there is no hiatal hernia. However, there are quite a lot of red dots, likely inflammation. Biopsy done at the antrum, body, GE junction at 40 and sucked out the gas while scope pulling out. During the whole study, there is no food, blood, ulcer, bile observed. DEMOND / DOE /[id number] JOSE
== END 2019-01-24 13:12 | disposition home or self-care (01) ==
LOC: MW.SDS 09:44
PROVIDERS: ATTEND Surgery
DX: K21.0 Gastro-esophageal reflux disease with esophagitis (principal); K29.00 Acute gastritis without bleeding; K29.50 Unspecified chronic gastritis without bleeding; J45.909 Unspecified asthma, uncomplicated; L84 Corns and callosities; Z79.52 Long term (current) use of systemic steroids; Z79.899 Other long term (current) drug therapy
CPT/HCPCS: 81025; 88305; 88312; J2001; J2704; J7120

== ENCOUNTER 2019-05-18 08:29 | Day surgery (SDC) | payer MEDICAID ==
[~2019-05-18 08:29] MED LIST changes: +ceFAZolin 2 GM in Premix Bag 1 BAG IV ONE
[2019-05-18] MEDS ORDERED: Albuterol/Ipratropium 3.0-0.5 MG/3 ML Neb Soln NEB ONE (08:54)
--- NOTE | 2019-05-18 08:58 | PCM.PREANE ---
Preanesthetic Assessment - Anesthesia/Transfusion/Family Hx Anesthesia History: Prior Anesthesia Without Reaction Family History of Anesthesia Reaction: No Transfusion History: No Prior Transfusion(s) Intubation History: Unknown - Review of Systems General: No Symptoms Pulmonary: Shortness of Breath, Wheezing Cardiovascular: No Symptoms Neurological: No Symptoms - Physical Assessment NPO Status Date: 05/17/19 Vital Signs: Last Vital Signs Temp 97.3 F 05/18/19 08:48 Pulse 81 05/18/19 08:48 Resp 16 05/18/19 08:48 BP 107/64 05/18/19 08:48 Pulse Ox 98 05/18/19 08:48 Height: 5 ft 2 in Weight: 95.708 kg ASA Class: 2 Mental Status: Alert & Oriented x3 Airway Class: Mallampati = 2 Dentition: Reports: Normal Dentition ROM/Head Extension: Limited/Partial Lungs: Normal Respiratory Effort, Decreased Breath Sounds (decreased posteiorly with squeeks, good airflow anteriorly) - Allergies Allergies/Adverse Reactions: Allergies Allergy/AdvReac Type Severity Reaction Status Date / Time No Known Allergies Allergy Verified 05/15/19 10:39 - Blood Blood Available: No - Anesthesia Plan Pre-Op Medication Ordered: Other (duoneb) - Acknowledgements Anesthesia Type Planned: General Anesthesia Pt an Appropriate Candidate for the Planned Anesthesia: Yes Alternatives and Risks of Anesthesia Discussed w Pt/Guardian: Yes Pt/Guardian Understands and Agrees with Anesthesia Plan: Yes Additional Comments: anes prob list: asthma, gerd, RA- on remicade plus prednisone 5 mg qd PreAnesthesia Questionnaire - Past Health History Medical/Surgical History: Denies Medical/Surgical History HEENT History: Reports: Allergic Rhinitis, Hard of Hearing, Other (See Below) Other HEENT History: wears glasses Respiratory History: Reports: Asthma Other Respiratory History: rarely uses inhaler while on Prednisone Gastrointestinal History: Reports: Cholelithiasis, GERD, Hemorrhoids, Helicobacter Pylori 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: Other OB/BYN History: has a 6 month old baby- still breast feeding at times Musculoskeletal History: Reports: Fracture, RA Other Musculoskeletal History: hx of fx clavicle Endocrine/Metabolic History: Reports: Obesity/BMI 30+ Immunologic History: Reports: Immunosuppression - Past Surgical History GI Surgical History: Reports: Colonoscopy, EGD - SUBSTANCE USE Smoking Status *Q: Former Smoker Tobacco Use Within Last Twelve Months: No Recreational Drug Use History: No - HOME MEDS Home Medications: Home Meds Albuterol [Proventil HFA] 1 - 2 puff INH Q4H PRN 01/08/19 [History] Loratadine 10 mg PO DAILY 01/08/19 [History] predniSONE [Prednisone] 5 mg PO QAM 01/08/19 [History] - CURRENT (IN HOUSE) MEDS Current Meds: Current Medications Lactated Ringer's (Ringers, Lactated) 1,000 mls @ 125 mls/hr IV ASDIRECTED XU Last Admin: 05/18/19 08:42 Dose: 125 mls/hr Cefazolin Sodium/Dextrose 2 gm (/ Premix) 50 mls @ 100 mls/hr IV ONETIME ONE Stop: 05/23/19 05:29 Discontinued Medications Cefazolin Sodium/Dextrose 2 gm (/ Premix) 50 mls @ 100 mls/hr IV ONETIME ONE Stop: 05/18/19 05:29
[2019-05-18] MEDS ORDERED: Propofol 200 MG/20 ML SDV ONE (09:09)
[2019-05-18] MEDS ORDERED: Lidocaine 2% 5 ML SDV ONE (09:10)
--- NOTE | 2019-05-18 09:34 | PCM.OPNOTE ---
- General Post-Op/Procedure Note Date of Surgery/Procedure: 05/18/19 Operative Procedure(s): egd w bx Findings: see dict [id number] Pre Op Diagnosis: recurrent gerd and h pylori infection Post-Op Diagnosis: Same Anesthesia Technique: Moderate Sedation Primary Surgeon: Adam Davis Pathology: sent Complications: None Condition: Good
--- NOTE | 2019-05-18 09:59 | PCM.POSTAN ---
POST ANESTHESIA ASSESSMENT - MENTAL STATUS Mental Status: Alert, Oriented - VITAL SIGNS Vital Signs: Last Vital Signs Temp 97.3 F 05/18/19 08:48 Pulse 79 05/18/19 09:58 Resp 22 H 05/18/19 09:58 BP 100/58 L 05/18/19 09:58 Pulse Ox 97 05/18/19 09:58 - RESPIRATORY Respiratory Status: Respiratory Rate WNL, Airway Patent, O2 Saturation Stable - CARDIOVASCULAR CV Status: Pulse Rate WNL, Blood Pressure Stable - GASTROINTESTINAL GI Status: No Symptoms - POST OP HYDRATION Hydration Status: Adequate & Stable
--- NOTE | 2019-05-18 10:21 | PCM48HPAN ---
Post Anesthesia Note - EVALUATION WITHIN 48HRS OF ANESTHETIC Vital Signs in Normal Range: Yes Patient Participated in Evaluation: Yes Respiratory Function Stable: Yes Airway Patent: Yes Cardiovascular Function Stable: Yes Hydration Status Stable: Yes Pain Control Satisfactory: Yes Nausea and Vomiting Control Satisfactory: Yes Mental Status Recovered: Yes Vital Signs: Last Vital Signs Temp 97.3 F 05/18/19 08:48 Pulse 79 05/18/19 09:58 Resp 22 H 05/18/19 09:58 BP 100/58 L 05/18/19 09:58 Pulse Ox 97 05/18/19 09:58
--- NOTE | 2019-05-18 11:31 | OR ---
SURGEON: Adam Davis MD DATE OF PROCEDURE: 05/18/2019 PREOPERATIVE DIAGNOSES: Recurrent gastroesophageal reflux disease and Helicobacter pylori infection. POSTOPERATIVE DIAGNOSES: Recurrent gastroesophageal reflux disease and Helicobacter pylori infection. PROCEDURE PERFORMED: Esophagogastroduodenoscopy with biopsy. DESCRIPTION OF PROCEDURE: EGD: The patient was taken to the endoscopy room, and with the AUTOMOBILE MECHANIC ASSISTANT, Diprivan was administered. A well-lubricated EGD scope was gently inserted through the oropharynx, down the esophagus, passing through the gastroesophageal junction, into the stomach. The mucosa was examined upon the passage. Any etiology will be noted. Once in the stomach, we continued to advance to the distal antrum, passed through the pylorus into the second portion of the duodenum. Again, the mucosa was examined for any abnormality and etiology. The scope was then retrieved back to the stomach and then retroflexed to look at the fundus of the stomach. If a biopsy was indicated, we will biopsy the antrum, body, and gastroesophageal junction. The air will be sucked out while the scope is retrieved to reduce the patient's discomfort. The patient tolerated the procedure well. There were no intraoperative complications. Dr. Davis was present through the whole procedure. Prior to surgery, a time-out had been called, the patient identified, procedure identified and antibiotic administered. FINDINGS: 1. The patient had asthma flare-up on the day of the procedure and requiring nebulizer treatment. 2. The patient was easily sedated with AUTOMOBILE MECHANIC ASSISTANT and Diprivan, the patient is soundly snoring. 3. Oropharynx and proximal esophagus are free of disease. Distal esophagus at GE junction at 40 shows moderate salmon tinge consistent with moderate amount of acid reflux. Stomach rugae are normal in appearance. Antrum is normal in appearance. Duodenum is grossly normal. Retroflexed look at the fundus of stomach, the patient does not have hiatal hernia. Biopsy done at antrum, body, GE junction at 40 and sucked out the gas while scope pulling out. During the whole study, there is no bile, blood, ulcer, or food particle observed. DEMOND / DOE /[id number]
[2019-05-23] MEDS ORDERED: ceFAZolin 2 GM in Premix Bag 1 BAG IV ONE (05:00)
== END 2019-05-18 10:45 | disposition home or self-care (01) ==
LOC: MW.SDS 08:29
PROVIDERS: ATTEND Surgery
DX: K21.0 Gastro-esophageal reflux disease with esophagitis (principal); K29.50 Unspecified chronic gastritis without bleeding; R19.7 Diarrhea, unspecified; J45.909 Unspecified asthma, uncomplicated; F17.210 Nicotine dependence, cigarettes, uncomplicated; M06.9 Rheumatoid arthritis, unspecified; Z79.52 Long term (current) use of systemic steroids; Z79.899 Other long term (current) drug therapy
CPT/HCPCS: 43239; 81025; 94640; J2001; J2704; J7120; J7620-GY

== ENCOUNTER 2019-08-29 06:30 | Day surgery (SDC) | payer MEDICAID ==
[2019-08-29] MEDS ORDERED: fentaNYL 100 MCG/2 ML SDV ONE (07:25)
[2019-08-29] MEDS ORDERED: Midazolam 1 MG/ML 2 ML SDV ONE (07:25)
[2019-08-29] MEDS ORDERED: Propofol 200 MG/20 ML SDV ONE (07:25)
[2019-08-29] MEDS ORDERED: Ketorolac 30 MG/ML SDV ONE (07:26)
[2019-08-29] MEDS ORDERED: Dexamethasone 4 MG/ML 5 ML MDV ONE (07:26)
[2019-08-29] MEDS ORDERED: Lidocaine 2% 5 ML SDV ONE (07:26)
[2019-08-29] MEDS ORDERED: Rocuronium 100 MG/10 ML Syringe ONE (07:26)
[2019-08-29] MEDS ORDERED: Ondansetron 4 MG/2 ML SDV ONE (07:26)
[2019-08-29 07:32] LABS: BLOOD UREA NITROGEN,BUN 14 mg/dL (7.0-18.0); CARBON DIOXIDE,CO2 26.9 mmol/L (21.0-32.0); CHLORIDE,CL 106 mmol/L (98-107); GLUCOSE RANDOM 88 mg/dL (74-106); LIPASE 102 U/L (73-393); POTASSIUM,K 3.9 mmol/L (3.5-5.1); SODIUM,NA 142 mmol/L (136-145)
--- NOTE | 2019-08-29 07:34 | PCM.PREANE ---
Preanesthetic Assessment - Anesthesia/Transfusion/Family Hx Anesthesia History: Prior Anesthesia Without Reaction Family History of Anesthesia Reaction: No Transfusion History: No Prior Transfusion(s) Intubation History: Unknown - Review of Systems General: No Symptoms Pulmonary: No Symptoms Cardiovascular: No Symptoms Gastrointestinal: No Symptoms Neurological: No Symptoms Other: Reports: None - Physical Assessment NPO Status Date: 08/28/19 NPO Status Time: 23:30 Vital Signs: Last Vital Signs Temp 97.3 F 08/29/19 06:40 Pulse 73 08/29/19 06:40 Resp 16 08/29/19 06:40 BP 110/52 L 08/29/19 06:40 Pulse Ox 97 08/29/19 06:40 Height: 5 ft 2 in Weight: 99.79 kg ASA Class: 2 Mental Status: Alert & Oriented x3 Airway Class: Mallampati = 1 Dentition: Reports: Normal Dentition ROM/Head Extension: Full Lungs: Clear to Auscultation, Normal Respiratory Effort Cardiovascular: Regular Rate, Regular Rhythm - Lab Values: Laboratory Last Values Urine HCG, Qual NEGATIVE (NEGATIVE) 08/29/19 06:57 - Allergies Allergies/Adverse Reactions: Allergies Allergy/AdvReac Type Severity Reaction Status Date / Time No Known Allergies Allergy Verified 08/23/19 11:27 - Blood Blood Available: No - Anesthesia Plan Pre-Op Medication Ordered: None (PMH: ankylosing spondylosis- with preserved cervical extension, either psoriatic or rheumatoid arthritis- pt unsure, raynauds, cRAD-chronic cough-normal spirometry, quit smoking 7 years ago), Antacids (get) - Acknowledgements Anesthesia Type Planned: General Anesthesia Pt an Appropriate Candidate for the Planned Anesthesia: Yes Alternatives and Risks of Anesthesia Discussed w Pt/Guardian: Yes Pt/Guardian Understands and Agrees with Anesthesia Plan: Yes Additional Comments: PMH: ank-spondylosis- preserved cerv extension, grd, rad-chr cough-nl spirometry , psoriatic or rheumatoid arthritis-pt unsure, former smoker-quit 7 years ago, [place] with bmi of 40, raynauds PLAN: GET PreAnesthesia Questionnaire - Past Health History Medical/Surgical History: Denies Medical/Surgical History HEENT History: Reports: Other (See Below) Other HEENT History: wears glasses Respiratory History: Reports: Other (See Below) Other Respiratory History: chronic cough Gastrointestinal History: Reports: GERD, Hemorrhoids 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 OB/BYN History: has a 6 month old baby- still breast feeding at times Musculoskeletal History: Reports: Back Pain, Chronic, Other (See Below) Other Musculoskeletal History: Ankylosing Spondylisis Endocrine/Metabolic History: Reports: Obesity/BMI 30+ Immunologic History: Reports: Immunosuppression Dermatologic History: Reports: Psoriasis - Past Surgical History Head Surgeries/Procedures: Reports: None GI Surgical History: Reports: Colonoscopy, EGD - SUBSTANCE USE Smoking Status *Q: Former Smoker Tobacco Use Within Last Twelve Months: No Recreational Drug Use History: No - HOME MEDS Home Medications: Home Meds Loratadine 10 mg PO BID PRN 01/08/19 [History] Ascorbate Calcium [Vitamin C] 1,000 mg PO DAILY 08/23/19 [History] Diclofenac Sodium 1 dose TOP QID 08/23/19 [History] InFLIXimab [Remicade] 1 dose IV ASDIRECTED 08/23/19 [History] Pantoprazole [ProTONIX] 40 mg PO DAILY 08/23/19 [History] Pramoxine [Proctofoam] 1 dose TOP ASDIRECTED PRN 08/23/19 [History] Triamcinolone Acetonide [Triamcinolone Acetonide 0.025%] 1 dose TOP TID [History] - CURRENT (IN HOUSE) MEDS Current Meds: Current Medications Lactated Ringer's (Ringers, Lactated) 1,000 mls @ 125 mls/hr IV ASDIRECTED [facility] Last Admin: 08/29/19 06:50 Dose: 125 mls/hr Discontinued Medications Cefazolin Sodium/Dextrose 2 gm (/ Premix) 50 mls @ 100 mls/hr IV ONETIME ONE Stop: 08/29/19 05:29
[2019-08-29] MEDS ORDERED: fentaNYL 100 MCG/2 ML SDV IVPUSH PRN (09:25)
[2019-08-29] MEDS ORDERED: Albuterol 0.083% 2.5 MG/3 ML Neb Soln NEB PRN (09:25)
[2019-08-29] MEDS ORDERED: Naloxone 0.4 MG/ML Syringe IVPUSH PRN (09:25)
[2019-08-29] MEDS ORDERED: 50% Dextrose in Water 50 ML Syringe IVPUSH PRN (09:25)
[2019-08-29] MEDS ORDERED: Atropine 0.1 MG/ML 10 ML Syringe IVPUSH PRN ×2 (09:25)
[2019-08-29] MEDS ORDERED: EPINEPHrine 1:10,000 1 MG/10 ML Syringe IVPUSH PRN (09:25)
[2019-08-29] MEDS ORDERED: Sugammadex Sodium 200 MG/2 ML VIAL ONE (09:41)
[2019-08-29] MEDS ORDERED: Octyl 2-Cyanoacrylate 1 Tube ONE (09:43)
[2019-08-29] MEDS ORDERED: Glycopyrrolate 0.2 MG/ML SDV ONE (09:45)
[2019-08-29] MEDS ORDERED: Neostigmine Methylsulfate 1 MG/ML 5 ML Syringe ONE (09:45)
[2019-08-29] MEDS ORDERED: Haloperidol Lactate 5 MG/ML SDV IM ONE (10:16)
[2019-08-29] MEDS ORDERED: Ondansetron 4 MG/2 ML SDV IVPUSH ONE (10:16)
--- NOTE | 2019-08-29 10:16 | PCM.OPNOTE ---
- General Post-Op/Procedure Note Date of Surgery/Procedure: 08/29/19 Findings: gb distended w severe adherence to surrounding organs, yellow and green, cw chronic and acute cholecystitis; gs 3 X 2 cm, large. wall is not thickened; [id number] Pre Op Diagnosis: cholecystitis Post-Op Diagnosis: Same Anesthesia Technique: General ET Tube Primary Surgeon: Adam Davis Pathology: sent Complications: None Condition: Good
[2019-08-29] MEDS: HYDROmorphone 2 MG/ML Syringe IVPUSH PRN ×2 (10:18→10:27)
[2019-08-29] MEDS ORDERED: Acetaminophen/oxyCODONE 325-10 MG Tab PO PRN (10:20)
[2019-08-29] MEDS ORDERED: Haloperidol Lactate 5 MG/ML SDV ONE (10:34)
--- NOTE | 2019-08-29 12:00 | PCM.POSTAN ---
POST ANESTHESIA ASSESSMENT - MENTAL STATUS Mental Status: Alert, Oriented - VITAL SIGNS Vital Signs: Last Vital Signs Temp 97.3 F 08/29/19 11:04 Pulse 64 08/29/19 11:24 Resp 14 08/29/19 11:24 BP 104/70 08/29/19 11:24 Pulse Ox 97 08/29/19 11:24 - RESPIRATORY Respiratory Status: Respiratory Rate WNL, Airway Patent, O2 Saturation Stable - CARDIOVASCULAR CV Status: Pulse Rate WNL, Blood Pressure Stable - GASTROINTESTINAL GI Status: No Symptoms - POST OP HYDRATION Hydration Status: Adequate & Stable
--- NOTE | 2019-08-29 12:05 | PCM48HPAN ---
Post Anesthesia Note - EVALUATION WITHIN 48HRS OF ANESTHETIC Vital Signs in Normal Range: Yes Patient Participated in Evaluation: Yes Respiratory Function Stable: Yes Airway Patent: Yes Cardiovascular Function Stable: Yes Hydration Status Stable: Yes Pain Control Satisfactory: Yes Nausea and Vomiting Control Satisfactory: Yes Mental Status Recovered: Yes Vital Signs: Last Vital Signs Temp 97.3 F 08/29/19 11:04 Pulse 64 08/29/19 11:24 Resp 14 08/29/19 11:24 BP 104/70 08/29/19 11:24 Pulse Ox 97 08/29/19 11:24
--- NOTE | 2019-08-29 16:05 | OR ---
SURGEON: Adam Davis MD DATE OF PROCEDURE: 08/29/2019 PREOPERATIVE DIAGNOSIS: Acute on chronic cholecystitis. POSTOPERATIVE DIAGNOSIS: Acute on chronic cholecystitis. PROCEDURE PROPOSED: Laparoscopic cholecystectomy. PROCEDURE PERFORMED: Laparoscopic cholecystectomy. PRIMARY SURGEON: Adam Davis MD. COMPLICATIONS: None. FINDINGS: There was a severe adherence to the gallbladder and yellow and green consistent with chronic cholecystitis. Wall is not thickened. There is a very large gallstone, I think something like about 3.5 x 2 cm. PROCEDURE NOTE: The patient was taken to the operating room and placed in the supine position. After the intubation of general endotracheal anesthesia, the patient's abdomen was prepped and draped in the usual sterile fashion. Using Optiview, a 12 mm trocar was placed supraumbilically and then followed with pneumoperitoneum. A 5 mm trocar was placed in the epigastrium and two 5 mm trocars placed in the right upper quadrant. The placement of the last three trocars was done under direct video supervision. Upon gaining entrance to the abdominal cavity, an extensive examination was then performed. The gallbladder was located and identified and retracted to the dome of the liver at the triangle of Calot. The cystic duct was clipped three more times and then using the endoscopic clip, was transected with placement of the endoscopic clip and transection was performed with care, ensuring the posterior prong of the instruments were clearly visualized prior to exercising the procedure. The gallbladder was dissected using electrocautery out of the liver bed and then removed using endoscopic bag through the umbilical site. The gallbladder was removed en bloc and there was no bile spillage and this was then followed with extensive irrigation until the bile was clear from blood and bile. The trocars were then removed under direct video supervision. The 12 mm umbilical site was then closed with deep stitches using 0 Vicryl followed with proximal stitches using 3-0 Vicryl and Dermabond. The other three trocar sites were closed with 3-0 Vicryl followed with approximation of skin with Dermabond. The patient was then awakened and extubated and transferred to the recovery room in hemodynamically stable condition. At the conclusion of the surgery, before closing the abdominal wound, instrument count and sponge count were done and were correct. The patient tolerated the procedure well and there were no intraoperative complications. Dr. Davis was present through the whole procedure. Just before surgery, a timeout was called. The patient was identified and procedure identified and procedure started. Intraoperative findings as dictated above. At the end of the surgery, a piece of Surgicel was inserted for hemostasis. DEMOND AZAR /[id number]
== END 2019-08-29 12:30 | disposition home or self-care (01) ==
LOC: MW.SDS 06:30
PROVIDERS: ATTEND Surgery
DX: K80.10 Calculus of gallbladder with chronic cholecystitis without obstruction (principal); J45.909 Unspecified asthma, uncomplicated; K21.9 Gastro-esophageal reflux disease without esophagitis; M45.6 Ankylosing spondylitis lumbar region; F17.210 Nicotine dependence, cigarettes, uncomplicated; E66.9 Obesity, unspecified; Z68.38 Body mass index [BMI] 38.0-38.9, adult; Z79.899 Other long term (current) drug therapy
CPT/HCPCS: 36415; 47562; 80053; 81025; 82150; 83690; 85025; 88304; A9270; J0131; J0330; J1100; J1170; J1630; J1885; J2001; J2250; J2405; J2704; J3010; J3490; J7120; 00790